=== PATIENT | male | born 1975 | race Caucasian/White ===

== ENCOUNTER 2017-04-07 13:20 | Emergency (ER) | payer OTHER, BC ==
[~2017-04-07] VITALS: Ht 180.3 cm; Wt 116.3 kg
[~2017-04-07 13:20] MED LIST: PHENERGAN25 MG PR; PROMETHAZINE HC25 M1 PO; ULTRACET1 TABLET PO; ~No Medications
[2017-04-07] MEDS ORDERED: MOTRIN800 MG PO (15:25)
[2017-04-07] MEDS ORDERED: FLEXERIL10 MG PO (15:25)
[2017-04-07 15:45] VITALS: BP 120/72
== END 2017-04-07 15:48 | disposition home or self-care (01) ==
LOC: EME 13:20
DX: S13.4XXA Sprain of ligaments of cervical spine, initial encounter (principal); S33.5XXA Sprain of ligaments of lumbar spine, initial encounter; V49.40XA Driver injured in collision with unspecified motor vehicles in traffic accident, initial encounter; Y92.410 Unspecified street and highway as the place of occurrence of the external cause
CPT/HCPCS: 72040; 72100; 99281; 99284